=== PATIENT | male | born 1945 | race Caucasian/White ===

== ENCOUNTER 2018-02-24 14:54 | Inpatient (IN) | payer OTHER ==
[~2018-02-24] VITALS: Ht 172.7 cm; Wt 81.3 kg
[~2018-02-24 14:54] MED LIST: ACET325 PO; AMLO5 PO; Advil200 M1 PO; Aspirin EC81 MG PO; CALCAVITD PO; Colace100 MG PO; DUTA.5 PO; ELIQUIS5 MG PO; FOLI1 PO; Hair, Skin & N1 EACH PO; LISI10; LISI20 PO; LUTEIN40 MG PO; LUTEIN6 MG PO; METO50 PO; METO50ER PO; MULVITMIND PO; NICO21TP TOP; NITR.4SL SL; OMEP10ER; OMEP20ER PO; OMEPRAZOLE MAGN20 MG PO; ONDA4ODT MM; OXYC5 PO; PIRO10; Pacerone400 MG PO; SODCHL1 PO; SPIR25 PO; TAMS.4ER PO; TORSE20 PO; TRIHYD253A; TURMERIC500 M1 PO; VITAMIN D3 1,01 EACH PO; ZESTRIL40 MG PO
[2018-02-24 15:46] LABS: BASOPHILS PERCENT AUTO 0 % (0-2); EOSINOPHILS ABSOLUTE AUTO 0.06 K/mm3 (0.00-0.68); EOSINOPHILS PERCENT AUTO 0 % (0-6); Hematocrit 26.2 % (37.0-53.0); Hemoglobin 8.8 g/dL (13.5-17.5); IMMATURE GRAN ABSOLUTE AUTO 0.43 K/mm3 (0.00-0.10); IMMATURE GRAN PERCENT AUTO 2 % (0-1); LYMPHOCYTES ABSOLUTE AUTO 1.15 K/mm3 (0.84-5.20); LYMPHOCYTES PERCENT AUTO 4 % (21-46); MONOCYTES ABSOLUTE AUTO 0.93 K/mm3 (0.16-1.47); MONOCYTES PERCENT AUTO 4 % (4-13); Mean Corpuscular HGB 33.7 pg (26.0-34.0); Mean Corpuscular HGB Conc 33.6 g/dL (31.5-36.5); Mean Corpuscular Volume 100 fL (80-100); NEUTROPHILS ABSOLUTE AUTO 23.96 K/mm3 (1.96-9.15); NEUTROPHILS PERCENT AUTO 90 % (41-73); Platelet Count 68 K/mm3 (150-400); RDW Coefficient Variation 17.8 % (11.7-14.2); RDW Standard Deviation 65.4 fL (35.1-46.3); Red Blood Cell Count 2.61 M/mm3 (4.30-5.90); White Blood Cell Count 26.63 K/mm3 (4.00-11.30)
[2018-02-24 16:18] LABS: Albumin, Blood 1.7 g/dL (3.4-5.0); Albumin/Globulin Ratio 0.4 (0.8-1.8); Bilirubin, Total 6.1 mg/dL (0.1-1.0); Bun/Creatinine Ratio 28.8 (12.0-20.0); Creatinine, Blood 1.7 mg/dL (0.60-1.20); Potassium, Blood 6.2 mmol/L (3.5-5.5); Total Protein, Blood 5.7 g/dL (6.4-8.2)
[2018-02-24] MEDS ORDERED: K-Dur 20 meq T20 MEQ PO (16:38)
[2018-02-24] MEDS ORDERED: TRAM50 PO (16:39)
[2018-02-24 17:49] LABS: PCO2 Arterial 32.2 mmHg (35-45); PO2 Arterial 97.2 mmHg (80-100); pH Blood Arterial 7.38 (7.35-7.45)
[2018-02-24 19:42] LABS: Source, Urine Clean Catch
[2018-02-24 19:51] LABS: Blood, Urine 5+ (Neg); Glucose Qualitative, Urine Neg (Neg); Ketones, Urine Neg (Neg); Leukocyte Esterase, Urine 3+ (Neg); Nitrite, Urine Neg (Neg); Protein, Urine 2+ (Neg); Urobilinogen, Urine 2+ (Normal)
[2018-02-24 19:55] LABS: International Normalized Ratio 1.26; Prothrombin Time Results 12.8 Sec (9.7-11.5)
[2018-02-24 20:03] LABS: Bilirubin, Urine 1+ (Neg)
[2018-02-24 20:05] LABS: Appearance, Urine Turbid (Clear); Color, Urine Yellow (P-Yellow)
[2018-02-24 20:06] LABS: White Blood Cells, Urine TNTC /hpf (0-5)
[2018-02-24 20:07] LABS: Red Blood Cells, Urine 0-2 /hpf (0-2)
[2018-02-24 20:08] LABS: Bacteria Many /hpf; Squamous Epithelial Cells Not Seen /hpf (Few)
[2018-02-24 20:54] LABS: Influenza A Negative (NEGATIVE); Influenza B Negative (NEGATIVE)
--- NOTE | 2018-02-25 00:25 | NUR ---
PT ARRIVAL. PT ARRIVED ON THE UNIT APROX 2029. PT IS SLEEPY BUT RESPONDS TO VERBAL STIMULI. PT IS ABLE TO ANSWER SOME QUESTIONS APPROPRIATELY, HOWEVER IS CONFUSED MOST OF THE TIME. PT IS ADMITTED DUE TO HIGH K+. TELE WAS PLACED, SR IN THE 90'S PER PAPERHANGER CONTRACTOR, BP 96/62, PT HAS BEEN HYPOTENSIVE PER REPORT FROM ER NURSE. PT HAS HAD 2 VALVES REPLACED IN 2017. PT HAS 4+ PITTING EDEMA TO THE BLE AND GENERALIZED/DEPENDENT EDEMA TO THE REST OF HIS BODY. L/S CLEAR BUT DIM IN THE BASES. BT PRESENT BUT HYPOACTIVE, ABD IS SOFT AND NONTENDER TO PALP. PT IS CONT/INCONT OF URINE WITH A UTI. BLADDER SCAN SHOWED 243 MLS POST VOID. BED ALARM IN ON, CALL LIGHT IN REACH, BED IS LOCKED AND LOW, WILL CONTINUE TO MONITOR.
[2018-02-25 03:39] LABS: Source, Urine Catheter
[2018-02-25 03:44] LABS: Blood, Urine 5+ (Neg); Glucose Qualitative, Urine Neg (Neg); Ketones, Urine Neg (Neg); Leukocyte Esterase, Urine 3+ (Neg); Nitrite, Urine Pos (Neg); Protein, Urine 2+ (Neg); Urobilinogen, Urine 1+ (Normal)
[2018-02-25 03:47] LABS: Appearance, Urine Cloudy (Clear); Bilirubin, Urine 1+ (Neg); Color, Urine Yellow (P-Yellow)
[2018-02-25 03:51] LABS: Red Blood Cells, Urine 0-2 /hpf (0-2); White Blood Cells, Urine TNTC /hpf (0-5)
[2018-02-25 03:52] LABS: Bacteria Many /hpf; Squamous Epithelial Cells Not Seen /hpf (Few); WBC Cast 0-2 /lpf (0)
[2018-02-25 04:13] LABS: Hematocrit 24.6 % (37.0-53.0); Hemoglobin 8.3 g/dL (13.5-17.5); Mean Corpuscular HGB Conc 33.7 g/dL (31.5-36.5); Mean Corpuscular Volume 101 fL (80-100); Mean Platelet Volume 12.7 fL (9.1-12.4); RDW Coefficient Variation 17.9 % (11.7-14.2); Red Blood Cell Count 2.44 M/mm3 (4.30-5.90); White Blood Cell Count 28.42 K/mm3 (4.00-11.30)
[2018-02-25 04:15] LABS: Platelet Count 50 K/mm3 (150-400)
[2018-02-25 04:33] LABS: Magnesium, Blood 1.9 mg/dL (1.6-2.4)
[2018-02-25 04:36] LABS: Alanine Aminotransfer (ALT/SGP 56 U/L (12-78); Albumin, Blood 2.5 g/dL (3.4-5.0); Albumin/Globulin Ratio 0.7 (0.8-1.8); Alk Phos 296 U/L (50-136); Anion Gap 9 mmol/L (6-16); Aspartate Aminotrans (AST/SGOT 108 U/L (12-37); Bilirubin, Total 6.8 mg/dL (0.1-1.0); Blood Urea Nitrogen 54 mg/dL (8-24); Bun/Creatinine Ratio 28.1 (12.0-20.0); CO2, Blood 20 mmol/L (21-32); Calcium, Blood 7.9 mg/dL (8.5-10.1); Chloride, Blood 97 mmol/L (98-108); Creatinine, Blood 1.92 mg/dL (0.60-1.20); Globulin, Blood 3.5 g/dL (2.2-4.0); Glomerular Filtration Rate 37 (60-); Glucose, Blood 117 mg/dL (70-99); Phosphorus, Blood 4.6 mg/dL (2.5-4.9); Potassium, Blood 6.9 mmol/L (3.5-5.5); Sodium, Blood 126 mmol/L (136-145)
[2018-02-25 05:53] LABS: Bun/Creatinine Ratio 26.6 (12.0-20.0); Calcium, Blood 7.9 mg/dL (8.5-10.1); Creatinine, Blood 1.99 mg/dL (0.60-1.20); Potassium, Blood 6.4 mmol/L (3.5-5.5)
--- NOTE | 2018-02-25 06:35 | NUR ---
SHIFT SUMMARY. DURING THIS SHIFT PT'S K+ INCREASED TO 6.9, PROVIDER WAS CALLED AND ORDERS OBTAINED AND PT WAS TREATED PER EMAR. NO EKG CHANGES NOTED ON TELE. PT HAS CALLED OUT TO USE THE URINAL APROX 2-3 TIMES AN HOUR THIS SHIFT, PT ONLY VOIDS 15-100 MLS AT A TIME. PT WAS STRAIGHT CATHED PER PROVIDER'S ORDRES FOR URINE CULTURES 200MLS OBTAINED. PT'S CONFUSION CONTINUES. PT'S BP HAS IMPROVED FROM ADMIT. PT'S VS HAVE BEEN STABLE. PICTURES OF ULCERATIONS ON THE PT'S FORSKIN AND RECTAL AREA WERE OBTAINED AND ARE IN THE CHART. CALL LIGHT IN REACH, BED IS LOCKED AND LOW, WILL CONTINUE TO MONITOR UNTIL REPORT CAN BE GIVEN TO ONCOMING RN.
--- NOTE | 2018-02-25 08:15 | NUR ---
DR. BERNAL AT BEDSIDE FOR EVALUATION, ADVISED OF ULCER ON PENIS AND RECTAL AREA, SHE ASSESSED PT AND REVIEWED PICTURES IN THE CHART. NO NEW ORDERS AT THIS TIME.
--- NOTE | 2018-02-25 08:17 | NUR ---
CRITICAL POTASSIUM CALLED DR. RAMIREZ WITH POTASSIUM LEVEL OF 6.1, NEW ORDER TO INCREASE BUMEX TO 4MG IV FOR 0900 DOSE, DRAW POTASSIUM LEVEL AT 1100, AND CALL WITH RESULTS. NEW ORDERS PLACED.
[2018-02-25 09:41] LABS: Bun/Creatinine Ratio 27.9 (12.0-20.0); Calcium, Blood 8.2 mg/dL (8.5-10.1); Creatinine, Blood 1.97 mg/dL (0.60-1.20)
--- NOTE | 2018-02-25 12:35 | NUR ---
CALLED DR. RAMIREZ WITH POTASSIUM RESULTS OF 5.8. NO NEW ORDERS.
--- NOTE | 2018-02-25 16:49 | NUR ---
PARTIAL ECHOCARDIOGRAM COMPLETED
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
--- NOTE | 2018-02-25 20:55 | NUR ---
PM NOTE. ASSUMED CARE OF PT APROX 1900. PT RESPONDS TO VERBAL STIMULI AND IS AWAKE AT TIMES BUT IS VERY SLEEPY AND WILL FALL ASLEEP DURING TASKS LIKE USING THE URINAL. TELE INTACT, ST AT 103, BP 135/99, 4+ PITTING EDEMA NOTED TO BLE AND GENERALIZED NON-PITTING NOTED EVERYWHERE ELSE. L/S CLEAR BUT DIM IN THE BASES. BT PRESENT AND HYPOACTIVE, ABD IS SOFT AND NONTENDER TO PALP. PT IS CALLING OUT FOR THE URINAL FREQUENTLY [id number] MINS, PT IS ONLY ABLE TO VOID SMALL AMOUNTS OF URINE FROM 20MLS-100MLS. PT HAS HISTORY OF BPH AND RETENTION, BLADDER SCAN WAS DONE AND >999 MLS WAS FOUND, PT'S PELVIC AREA IS HARD AND SLIGHTLY DISTENDED TO PALP, PT STATES PAIN WHEN AREA IS PALPATED. PT IS BECOMING VERY ANXIOUS ABOUT NOT BEING ABLE TO VOID AN AMOUNT THAT BRINGS HIM RELIEF. SPOKE TO CHARGE NURSE, NOHEMI JORGENSEN PLACED DUE TO UROLOGICAL EMERGENCY.
[2018-02-26 05:47] LABS: Hematocrit 26.4 % (37.0-53.0); Hemoglobin 9.1 g/dL (13.5-17.5)
[2018-02-26 06:05] LABS: Albumin, Blood 2.4 g/dL (3.4-5.0); Anion Gap 12 mmol/L (6-16); Blood Urea Nitrogen 62 mg/dL (8-24); Bun/Creatinine Ratio 31.8 (12.0-20.0); CO2, Blood 23 mmol/L (21-32); Calcium, Blood 8.2 mg/dL (8.5-10.1); Chloride, Blood 94 mmol/L (98-108); Creatinine, Blood 1.95 mg/dL (0.60-1.20); Glomerular Filtration Rate 36 (60-); Glucose, Blood 153 mg/dL (70-99); Magnesium, Blood 2.1 mg/dL (1.6-2.4); Phosphorus, Blood 6.5 mg/dL (2.5-4.9); Potassium, Blood 5.5 mmol/L (3.5-5.5); Sodium, Blood 129 mmol/L (136-145)
--- NOTE | 2018-02-26 07:48 | NUR ---
SHIFT SUMMARY. NO ACUTE CHANGES NOTED THIS SHIFT, PT'S VS HAVE BEEN STABLE T/O SHIFT. PT DENIES ANY CHEST PAIN/PRESSURE, N/V OR SOB. PT WAS MEDICATED FOR PAIN PER EMAR. PT IS STILL CONFUSED AT TIMES, BED ALARM IS ON. PT REQURIED JORGENSEN PLACEMENT THIS SHIFT DUE TO URINARY RETENTION, BLADDER SCAN WAS DONE AND SHOWED >999 MLS. A COUDE JORGENSEN WAS PLACED WITH DIFFICULTY, JORGENSEN DRAINED 2425 MLS OF CLOUDY, DARK YELLOW, FOUL SMELLING URINE THIS SHIFT. CALL LIGHT IN REACH, BED IS LOCKED AND LOW, WILL CONTINUE TO MONITOR UNTIL REPORT IS GIVEN TO ONCOMING RN.
[2018-02-26 09:10] LABS: BASOPHILS ABSOLUTE AUTO 0.06 K/mm3 (0.00-0.23); BASOPHILS PERCENT AUTO 0 % (0-2); EOSINOPHILS ABSOLUTE AUTO 0.07 K/mm3 (0.00-0.68); EOSINOPHILS PERCENT AUTO 0 % (0-6); Hematocrit 26.5 % (37.0-53.0); Hemoglobin 9.3 g/dL (13.5-17.5); IMMATURE GRAN ABSOLUTE AUTO 0.17 K/mm3 (0.00-0.10); IMMATURE GRAN PERCENT AUTO 1 % (0-1); LYMPHOCYTES ABSOLUTE AUTO 1.54 K/mm3 (0.84-5.20); LYMPHOCYTES PERCENT AUTO 9 % (21-46); MONOCYTES ABSOLUTE AUTO 0.92 K/mm3 (0.16-1.47); MONOCYTES PERCENT AUTO 5 % (4-13); Mean Corpuscular HGB 33.3 pg (26.0-34.0); Mean Corpuscular HGB Conc 35.1 g/dL (31.5-36.5); Mean Platelet Volume 12.1 fL (9.1-12.4); NEUTROPHILS ABSOLUTE AUTO 14.65 K/mm3 (1.96-9.15); NEUTROPHILS PERCENT AUTO 84 % (41-73); Platelet Count 69 K/mm3 (150-400); RDW Coefficient Variation 17.1 % (11.7-14.2); Red Blood Cell Count 2.79 M/mm3 (4.30-5.90); White Blood Cell Count 17.41 K/mm3 (4.00-11.30)
[2018-02-26 09:15] LABS: HBSAG SCREEN Negative (Negative); HEP A AB, IGM Negative (Negative); HEP B CORE AB, IGM Negative (Negative); HEP C VIRUS AB 0.1 (0.0-0.9)
[2018-02-26 09:21] LABS: Mean Corpuscular Volume 95 fL (80-100)
--- NOTE | 2018-02-26 17:27 | NUR ---
DR. BERNAL CALLED [facility] AND [facility] TO TRY TO HAVE PATIENT TRANSFERRED PER PATIENT REQUEST. [facility] AND [facility] HAVE NO BEDS AVAILABLE. [facility] REFUSED TO ACCEPT THE PATIENT BECAUSE LEVEL OF CARE DOES NOT WARRANT TRANSFER.
--- NOTE | 2018-02-26 19:53 | NUR ---
SHIFT SUMMARY PT A&O X4. FAMILY AT BEDSIDE T/O DAY. PT NO C/O PAIN OR DISCOMFORT. LUNG SOUNDS CLEAR T/O, DIM IN BASES. SPO2 > 92% ON RA. MONITOR SHOWS NSR, HR 90'S. JORGENSEN CATH DRAINING DARK YELLOW URINE. SCATTERED BRUISING T/O EXT'S THAT PT STATES HAPPEN EASILY AND STATES "A NEW ONE POPS UP EVERY DAY". LUMP TO L UPPPER CHEST ACKNOWLEDGED BY . US DONE OF AREA DURING CHANGE OF SHIFT. FAMILY REQUESTING TRANSFER OF CARE TO ANOTHER HOSPITAL T/O DAY. WHEN ADDRESSING PT ABOUT FAMILY REQUEST PT STATES "I DON'T WANT TO UPSET MY FAMILY." PT HAS NOT EXPRESSED WISHES TO TRANSFER OR EXPRESSED COMPLAINTS OF CARE OF ANY KIND WHEN ASKED. MD BERNAL MADE AWARE OF PT'S FAMILY'S REQUEST AND SPOKE W/ FAMILY. FAMILY MADE AWARE OF THE HOSPITAL TRANSFER PROCESS. MYSELF, CHARGE NURSE, TELESALES MANAGER, NURSING INTERNATIONAL TRADE MANAGER, AND MD BERNAL ALL INVOLVED W/ FAMILY EDUCATION OF TRANSFER REQUEST W/ POTENTIAL DICHARGE TO [facility] TO OCCUR TOMORROW. FAMILY STATES "IT'S NOTHING THAT'S HAPPENED OR BEEN DONE BY ANY OF YOU GUYS HERE. IT'S PAST EXPERIENCES." TIME SPENT W/ PT AND FAMILY ADDRESSING CONCERNS W/ LITTLE CONFIRMATION TO REASON FOR TRANSFER REQUEST. REPORT GIVEN TO NOC SHIFT NURSE WHO HAS ASSUMED CARE OF PT.
[2018-02-27 04:24] LABS: Hematocrit 24.3 % (37.0-53.0); Hemoglobin 8.5 g/dL (13.5-17.5); Mean Corpuscular HGB 33.3 pg (26.0-34.0); Mean Corpuscular Volume 95 fL (80-100); Mean Platelet Volume 11.8 fL (9.1-12.4); Platelet Count 80 K/mm3 (150-400); RDW Coefficient Variation 17.2 % (11.7-14.2); RDW Standard Deviation 59.7 fL (35.1-46.3); Red Blood Cell Count 2.55 M/mm3 (4.30-5.90); White Blood Cell Count 15.56 K/mm3 (4.00-11.30)
[2018-02-27 04:46] LABS: Albumin, Blood 2.4 g/dL (3.4-5.0); Anion Gap 10 mmol/L (6-16); Blood Urea Nitrogen 67 mg/dL (8-24); Bun/Creatinine Ratio 35.3 (12.0-20.0); CO2, Blood 25 mmol/L (21-32); CPK Creatine Kinase 11 U/L (39-308); Calcium, Blood 7.9 mg/dL (8.5-10.1); Chloride, Blood 93 mmol/L (98-108); Glomerular Filtration Rate 37 (60-); Glucose, Blood 140 mg/dL (70-99); Magnesium, Blood 1.9 mg/dL (1.6-2.4); Phosphorus, Blood 5.7 mg/dL (2.5-4.9); Potassium, Blood 4.7 mmol/L (3.5-5.5); Sodium, Blood 128 mmol/L (136-145); Uric Acid, Blood 7.7 mg/dL (3.5-7.2)
[2018-02-27 04:49] LABS: BAND PERCENT MAN 9 % (0-8); BASOPHILS PERCENT MAN 0 % (0-2); EOSINOPHILS PERCENT MAN 0 % (0-6); LYMPHOCYTES ABSOLUTE MAN 1.86 K/mm3 (0.84-5.20); LYMPHOCYTES PERCENT MAN 12 % (21-46); MONOCYTES ABSOLUTE MAN 0.77 K/mm3 (0.16-1.47); MONOCYTES PERCENT MAN 5 % (4-13); NEUTROPHILS ABSOLUTE MAN 12.91 K/mm3 (1.96-9.15); SEG NEUTROPHILS PERCENT MAN 74 % (41-73); TOTAL CELLS COUNTED 100
--- NOTE | 2018-02-27 06:25 | NUR ---
SHIFT SUMMARY PT HAS BEEN ALERT AND ORIENTED X 2 T/O SHIFT. HE DID HAVE SOME PERIODS OF CONFUSION. PT SLEPT OFF AND ON DURING THE NIGHT, BUT HAD COMPLAINTS OF PAIN IN HIS BACK AND LEGS DURING THE NIGHT. HE WAS PROVIDED ORDERED PAIN MEDS WHICH HE STATED HELPED SOME. WHEN HE WAS REASSESSED, HE WAS SLEEPING SOUNDLY. PT HAS BEEN WITHDRAWN DURING THE SHIFT, BUT ANSWERED QUESTIONS APPROPRIATELY, JUST ANSWERED SLOWLY. HE WAS ALERT TO FAMILY, BUT HAD MOMENTS OF DISORIENTATION. PT WAS REORIENTED DURING THESE PERIODS. HE WAS ABLE TO APPROPRIATELY USE HIS CALL LIGHT AND IT WAS LEFT WITHIN EASY REACH. HE WAS ABLE TO SWALLOW MEDS WITHOUT ISSUE AND HE DENIED ANY UNMET NEEDS. PT WAS ABLE TO MAKE NEEDS KNOWN. HIS VITALS REMAINED STABLE AND NO ACUTE CHANGES WERE OBSERVED TO MENTATION OR LOC. HE HAS NOT BEEN UP DURING THE NIGHT. PT IS REPORTED TO BE A STAND AND PIVOT TRANSFER. HE HAS HIS BED IN THE LOWEST POSITION, CALL LIGHT IN REACH AND 2X SIDE RAILS IN PLACE. PT DID HAVE HIS ULTRASOUND ON THE NEW BUMP ON HIS UPPER CHEST WALL AT SHIFT CHANGE ON THE 4TH. PT FAMILY EDUCATED ABOUT THIS AND THE POTENTIAL NEED FOR CT. PT WILL CONTINUE TO BE MONITORED AND FAMILY WILL BE KEPT IN THE LOOP TO FURTHER NEEDS/DX. WILL CONTINUE TO OBSERVE PATIENT UNTIL HANDOFF TO DAYSHIFT RN.
--- NOTE | 2018-02-27 16:13 | NUR ---
DISCHARGE REPORT CALLED TO LISA @ [place] WHO WILL BE RECIEVING THE PT. PT DISCHARGED @ APPROX 1600, BEING TRANSPORTED BY [facility] TO [place]. VSS. JORGENSEN PATENT AND DRAINING. NO C/O FROM PT. FAMILY NOTIFIED OF PT'S NEW ROOM ASSIGNMENT AT [place] AND PT'S DISCHARGE TIME.
== END 2018-02-27 16:10 | disposition short-term general hospital (02) | DRG 871 ==
LOC: ER 14:54 → PCU 19:15
PROVIDERS: Internal Medicine; Internal Medicine Nephrology; Nurse Practitioner Acute Care; Physician Assistant; ADMIT Internal Medicine
DX: A41.9 Sepsis, unspecified organism (principal); I21.A1 Myocardial infarction type 2; N17.0 Acute kidney failure with tubular necrosis; N39.0 Urinary tract infection, site not specified; I50.22 Chronic systolic (congestive) heart failure; F11.20 Opioid dependence, uncomplicated; E87.2 Acidosis; E87.1 Hypo-osmolality and hyponatremia; I13.0 Hypertensive heart and chronic kidney disease with heart failure and stage 1 through stage 4 chronic kidney disease, or unspecified chronic kidney disease; E87.5 Hyperkalemia; R65.20 Severe sepsis without septic shock; Z95.4 Presence of other heart-valve replacement; K64.9 Unspecified hemorrhoids; K21.9 Gastro-esophageal reflux disease without esophagitis; M19.90 Unspecified osteoarthritis, unspecified site; Z96.643 Presence of artificial hip joint, bilateral; Z79.82 Long term (current) use of aspirin; K70.9 Alcoholic liver disease, unspecified; D63.8 Anemia in other chronic diseases classified elsewhere; I25.10 Atherosclerotic heart disease of native coronary artery without angina pectoris; E87.70 Fluid overload, unspecified; K70.0 Alcoholic fatty liver; I48.2 Chronic atrial fibrillation; I08.3 Combined rheumatic disorders of mitral, aortic and tricuspid valves; E83.39 Other disorders of phosphorus metabolism; E88.09 Other disorders of plasma-protein metabolism, not elsewhere classified; N18.3 Chronic kidney disease, stage 3 (moderate)
CPT/HCPCS: 36415; 36600; 51703; 71046; 76604; 76705; 76770; 80048; 80053; 80069; 80074; 81001; 82140; 82533; 82550; 82607; 82746; 82803; 83605; 83690; 83735; 83880; 84100; 84132; 84145; 84300; 84443; 84550; 85014; 85018; 85025; 85027; 85610; 87040; 87077; 87086; 87186; 87804; 93005; 93010; 93308; 94644; 96365; 96366; 96368; 96375; 97116; 97162; 97166; 97530; 97535; 99285-25; J0610; J0692; J0696; J0881; J1815; J1956; J7030; P9041; P9046

== ENCOUNTER 2018-04-05 09:27 | Inpatient (IN) | payer OTHER ==
[~2018-04-05] VITALS: Ht 170.2 cm; Wt 72.6 kg
[~2018-04-05 09:27] MED LIST changes: +K-Dur 20 meq T20 MEQ PO; +TRAM50 PO
[2018-04-05] MEDS ORDERED: IBUP400 PO (09:43)
[2018-04-05] MEDS ORDERED: DIALYVITE50000 UNIT PO (09:44)
[2018-04-05] MEDS ORDERED: PERIDEX15 ML PO (09:44)
[2018-04-05] MEDS ORDERED: GAVILAX17 GM PO (09:44)
[2018-04-05] MEDS ORDERED: LACT10SY PO (09:45)
[2018-04-05] MEDS ORDERED: FURO20 PO (09:45)
[2018-04-05] MEDS ORDERED: LIDOCAINE PAIN1 EACH TOP (09:46)
[2018-04-05] MEDS ORDERED: SPIR50 PO (09:46)
[2018-04-05] MEDS ORDERED: LEVFLO500 PO (09:46)
[2018-04-05] MEDS ORDERED: AMLO5 PO (09:47)
[2018-04-05 11:22] LABS: BASOPHILS ABSOLUTE AUTO 0.02 K/mm3 (0.00-0.23); BASOPHILS PERCENT AUTO 0 % (0-2); EOSINOPHILS ABSOLUTE AUTO 0.19 K/mm3 (0.00-0.68); EOSINOPHILS PERCENT AUTO 2 % (0-6); Hematocrit 19.2 % (37.0-53.0); Hemoglobin 6.3 g/dL (13.5-17.5); IMMATURE GRAN ABSOLUTE AUTO 0.05 K/mm3 (0.00-0.10); IMMATURE GRAN PERCENT AUTO 1 % (0-1); LYMPHOCYTES ABSOLUTE AUTO 1.77 K/mm3 (0.84-5.20); LYMPHOCYTES PERCENT AUTO 17 % (21-46); MONOCYTES PERCENT AUTO 13 % (4-13); Mean Corpuscular HGB 31.5 pg (26.0-34.0); Mean Corpuscular HGB Conc 32.8 g/dL (31.5-36.5); Mean Corpuscular Volume 96 fL (80-100); Mean Platelet Volume 8.5 fL (9.1-12.4); NEUTROPHILS ABSOLUTE AUTO 7.04 K/mm3 (1.96-9.15); NEUTROPHILS PERCENT AUTO 67 % (41-73); Platelet Count 159 K/mm3 (150-400); RDW Coefficient Variation 15.5 % (11.7-14.2); RDW Standard Deviation 54.3 fL (35.1-46.3); White Blood Cell Count 10.47 K/mm3 (4.00-11.30)
[2018-04-05 11:42] LABS: Albumin, Blood 2.5 g/dL (3.4-5.0); Albumin/Globulin Ratio 0.6 (0.8-1.8); Bilirubin, Total 0.8 mg/dL (0.1-1.0); Bun/Creatinine Ratio 17.8 (12.0-20.0); Calcium, Blood 8.8 mg/dL (8.5-10.1); Creatinine, Blood 1.74 mg/dL (0.60-1.20); Globulin, Blood 4.3 g/dL (2.2-4.0); International Normalized Ratio 1.33; Potassium, Blood 4.1 mmol/L (3.5-5.5); Prothrombin Time Results 13.7 Sec (9.7-11.5); Total Protein, Blood 6.8 g/dL (6.4-8.2)
[2018-04-05 12:13] LABS: Source, Urine Clean Catch
[2018-04-05 12:22] LABS: Bilirubin, Urine Neg (Neg); Blood, Urine 1+ (Neg); Glucose Qualitative, Urine Neg (Neg); Ketones, Urine Neg (Neg); Leukocyte Esterase, Urine 2+ (Neg); Nitrite, Urine Neg (Neg); Protein, Urine Neg (Neg); Specific Gravity, Urine 1.005 (1.003-1.022); Urobilinogen, Urine NORM (Normal)
[2018-04-05 13:01] LABS: Appearance, Urine Clear (Clear); Color, Urine Yellow (P-Yellow)
[2018-04-05 13:03] LABS: Red Blood Cells, Urine 0-2 /hpf (0-2); Squamous Epithelial Cells Rare /hpf (Few)
[2018-04-05 13:04] LABS: Bacteria Rare /hpf
[2018-04-05 16:54] LABS: Hematocrit 23.8 % (37.0-53.0)
--- NOTE | 2018-04-05 18:21 | NUR ---
PATIENT GAVE THIS STUDENT NURSE PERMISSION TO VIEW CHART AND ASSIST WITH CARE
--- NOTE | 2018-04-05 18:57 | NUR ---
recvd report from previous shift rn shannon, pt sitting up in bed, a/o x 4, pleasant. vss, bed in lowest position, call light within reach, bed rails up x 2
--- NOTE | 2018-04-05 19:10 | NUR ---
DR COLEY HERE TO SEE PT, DISCUSSED PT'S STATUS INCLUDING PT REPORTING THAT HE HAS NOT HAD A BM IN A WEEK. REPORTS PLANNING ON UPPER TOMMORROW AND DOES NOT WISH PT TO HAVE ANY ADDITIONAL BOWEL CARE AT THIS TIME. HS RN HERE TALKING WITH DR COLEY WELL. DR COLEY REPORTS PT MAY HAVE C.L. AND BE NPO AFTER MIDNIGHT. PT VOIDING. PT 2ND UNIT OF PRBC'S STARTED. DISCUSSED S/SX OF REACTION. PICTURE BEEN TAKE OF HEEL ON L FOOT. R FOOT DID HAVE REDNESS BUT DOES NOT APPEAR TO HAVE ANY AFTER FLOATING HEELS WHILE IN BED. PT WAS ASSISTED EARLIER TO CHAIR AND THEN BACK TO BED AFTER SITTING UP FOR SHORT WHILE. HS RN BEEN GIVEN BEDSIDE REPORT AND ASSISTED WITH VERIFYING PRBC'S AND PLACING PAS TO BLE. CALL LIGHT IN REACH. TELE IN PLACE.
[2018-04-06 05:42] LABS: Hematocrit 26.7 % (37.0-53.0); Hemoglobin 9.1 g/dL (13.5-17.5); Mean Corpuscular HGB 31.9 pg (26.0-34.0); Mean Corpuscular HGB Conc 34.1 g/dL (31.5-36.5); Mean Corpuscular Volume 94 fL (80-100); Mean Platelet Volume 8.6 fL (9.1-12.4); Platelet Count 128 K/mm3 (150-400); RDW Coefficient Variation 15.9 % (11.7-14.2); RDW Standard Deviation 54.8 fL (35.1-46.3); Red Blood Cell Count 2.85 M/mm3 (4.30-5.90); White Blood Cell Count 7.51 K/mm3 (4.00-11.30)
[2018-04-06 05:59] LABS: Calcium, Blood 7.8 mg/dL (8.5-10.1); Creatinine, Blood 1.39 mg/dL (0.60-1.20); Potassium, Blood 4.1 mmol/L (3.5-5.5)
--- NOTE | 2018-04-06 07:44 | NUR ---
20G TO PT RT HAND PATENT AND INFUSING LR
--- NOTE | 2018-04-06 07:45 | NUR ---
PT IS PLEASANT AND COOPERATIVE. DR GALVAN IS PRESENT READING PT CHART. PT STATES THAT HIS IS IN WAITING ROOM. PT REQUESTING SWAB FOR MOUTH.
--- NOTE | 2018-04-06 07:52 | NUR ---
DR OTERO SAW PT NO NEW ORDERS GIVEN TO RN. PT RESTING QUIETLY UNDER WARM BLANKETS
--- NOTE | 2018-04-06 08:02 | NUR ---
DR COLEY TO SEE PT. NO NEW ORDERS GIVEN. PT BACK TO PROCEDURE ROOM
--- NOTE | 2018-04-06 08:09 | NUR ---
PT WAS BROUGHT BACK TO BEDSIDE. SO AFTER PROCEDURE DR COLEY CAN SPEAK TO HER.
--- NOTE | 2018-04-06 08:11 | NUR ---
04/06/18 0811 Lydia Anders History, Chart, Medications and Allergies reviewed before start of procedure. MAC CASE WITH DR. OTERO. SEE ANETHESIA RECORD FOR CARE.
--- NOTE | 2018-04-06 10:45 | NUR ---
DR GOMEZ HERE RECENTLY TO SEE PT.
--- NOTE | 2018-04-06 12:34 | NUR ---
Initial palliative care consult: Eric is a 72 year old with a history of UTI, chest wall abcess, anemia, chronic a-fib, CHF, CKD, valve disorder, and ETOH. He was recently admitted to [facility] in early February 2018 and was transferred to [facility]. This February admit was for sepsis and a spinal infection. He was discharged to [facility] for rehab and has been there for the past 3-4 weeks. He has had a 50 pound weight loss recently. He had an EGD this morning which showed gastritis. He is scheduled to begin [facility] for a colonoscopy prep at 1600 this afternoon. Pt was calling out when this senior writer entered his room. He was requesting a urinal. Urinal obtained and pt unable to void laying down so he requested assist to the bathroom. Pt attempted to get OOB several times, however he c/o back spams and back pain and he was unable to get OOB. Assisted pt to side of the bed and he was able to lay sideways in the bed and void 275 ml of micheal colored urine. He was unable to sit at the EOB. Assisted pt back in bed and repositioned him. He reports that his back pain increases when he tries to move. He is guarding and becomes anxious when he moves. Once he is laying still, he drifts off to sleep when undisturbed. He does have tramadol and a lidoderm patch available to use prn pain. He has not had any doses of either in the past 12 hours. MD chart notes reviewed and pt has been treated recently for a spinal infection. Pt requesting a sip of water which his nurse brought in for him. He do has some muscle twitching which is more apparent when he is sleeping. Per chart notes, this has been an ongoing problem recently. Phone call placed to [facility] and spoke with Kristen. Kristen reports pt has a signed POLST on file at [facility] that reads DNR, comfort measures and no TF. Kristen faxed a copy of Eric's POLST to Palliative care department. Talked with pt about his POLST. He states that he did sign a DNR POLST, however he states "I need to talk more about resusitation with my ." He requests to receive more information about resusitation and POLST form when his is present. Nursing reports his plans to return tomorrow. Updated nursing on PC visit. Plan to manage pt's pain with prn pain medications and prep for colonoscopy. PC to meet with pt and re: POLST form and wishes for future care planning after colonoscopy.
--- NOTE | 2018-04-06 17:58 | NUR ---
SHIFT SUMMARY PT HAVING GO-LYTELY. PT BEEN RESTING MOST OF DAY AFTER HAVING PROCEDURE THIS AM. PT HAS HAD NO BM'S YET. PT VOIDING. BED ALARM IN PLACE. PT USING CALL LIGHT APPR.
--- NOTE | 2018-04-07 05:57 | NUR ---
SHIFT SUMMARY: PT COMPLETED GO-LYTELY AT APPROX 0300 THIS AM. USING BEDPAN MOST OF SHIFT. STOOL IS OF LIQUID CONSTISTANCY BEGINNING TO CHANGE COLOR FROM BROWN TO YELLOW. PT HAS BEEN NPO T/O SHIFT FOR PLANNED COLONOSCOPY TODAY. OOB TO BSC WITH ONE SBA. PT APPEARS VERY WEAK UPON STANDING. BED ALARM ON FOR SAFETY.
--- NOTE | 2018-04-07 07:05 | NUR ---
History, Chart, Medications and Allergies reviewed before start of procedure. Pre-Op teaching done. Pt verbalizes understanding.
--- NOTE | 2018-04-07 07:38 | NUR ---
04/07/18 0738 Chuckie Espinal 3-LEAD EKG REVIEWED WITH PHYSICIAN PRIOR TO START OF PROCEDURE.PATIENT CONFIRMS NPO STATUS AND AGREES WITH SCHEDULED PROCEDURE.History, Chart, Medications and Allergies reviewed before start of procedure. MONITOR INTACT WITH CONTINUOUS PULSE OXIMETRY AND INTERMITTENT BP. O2 VIA N/C INTACT THROUGHOUT SEDATION/PROCEDURE.
--- NOTE | 2018-04-07 08:48 | NUR ---
post colonoscopy returned to room post colonoscopy, patient denies pain or nause. patients at bedside
[2018-04-07 09:17] LABS: Hematocrit 25.9 % (37.0-53.0); Hemoglobin 8.5 g/dL (13.5-17.5)
--- NOTE | 2018-04-07 15:04 | NUR ---
PATIENT SLEEPS WHEN UNDISTURBED, DOES NOT REMEMBER HIS BEING IN TO VISIT THIS MORNING.
--- NOTE | 2018-04-07 18:00 | NUR ---
symmary sleeps soundlyunless awakened. patient denies vomiting or abd pain. tolerating food and fluid. patient encouraged to get oob but has declined due to back pain. pt repositions self in bed
--- NOTE | 2018-04-07 18:03 | NUR ---
PATIENT NOTED WITH JERKING MOVEMENTS OF ARMS AND LEGS AT REST AND WHEN SLEEPING. PER PATIENTS PATIENT HAS HAD THESE MOVEMENTS IN THE PAST. PATIENTS DISCUSSED THESE MOVEMENTS WITH HOSPITALIST ON ROUNDS THIS MORNING
--- NOTE | 2018-04-08 00:55 | NUR ---
PATIENT WANTS BED CARDOSO AND LIKES TO SIT ON IT FOR A LONG TIME I TOLD PATIENT IT IS BAD TO SIT ON IT FOR A LONG TIME BUT DIDNT DO ANY GOOD PATIENT LET ME EMPTY IT AND WANTED IT BACK GONZALEZ AWAY
--- NOTE | 2018-04-08 02:18 | NUR ---
PT CONTINUED PASSING GREEN COLORED LIQUID PER RECTUM WITH NO EVIDENCE OF BLEEDING.VOIDING PER URINAL.REFUSED OOB FOR REPORTED C/O CHRONIC BACK PAIN. I MEDICATED PT WITH ULTRAM WHICH PT REPORTED ADEQUATE PAIN CONTROL S/P MED. I PLACED CALL OUT TO DR BOSTON FOR CONTINUED LIQ STOOL WHICH PT REPORTS NOT STARTING PRIOR TO PREP FOR SCOPE.WAITING RETURN CALL.
[2018-04-08 04:25] LABS: Hematocrit 27.6 % (37.0-53.0); Hemoglobin 9.1 g/dL (13.5-17.5); Mean Corpuscular HGB 32.2 pg (26.0-34.0); Mean Platelet Volume 8.4 fL (9.1-12.4); Platelet Count 116 K/mm3 (150-400); RDW Coefficient Variation 16.2 % (11.7-14.2); RDW Standard Deviation 57.9 fL (35.1-46.3); Red Blood Cell Count 2.83 M/mm3 (4.30-5.90); White Blood Cell Count 5.83 K/mm3 (4.00-11.30)
[2018-04-08 04:28] LABS: Mean Corpuscular Volume 98 fL (80-100)
[2018-04-08 04:43] LABS: Magnesium, Blood 1.3 mg/dL (1.6-2.4)
[2018-04-08 04:44] LABS: Albumin, Blood 2.3 g/dL (3.4-5.0); Anion Gap 9 mmol/L (6-16); Blood Urea Nitrogen 10 mg/dL (8-24); CO2, Blood 22 mmol/L (21-32); Calcium, Blood 8.3 mg/dL (8.5-10.1); Chloride, Blood 103 mmol/L (98-108); Creatinine, Blood 0.84 mg/dL (0.60-1.20); Glomerular Filtration Rate >60 (60-); Glucose, Blood 118 mg/dL (70-99); Phosphorus, Blood 2.3 mg/dL (2.5-4.9); Potassium, Blood 3.5 mmol/L (3.5-5.5); Sodium, Blood 134 mmol/L (136-145)
--- NOTE | 2018-04-08 06:06 | NUR ---
SUMMARY PT SLEEPING BETWEEN PAIN MEDS. REPORTS PAIN ADEQUATELY CONTROLLED BUT HE ALSO STATES WILL HAVE TO SEE WHEN HE GETSS OOB DURING DAY. ENC OOB. BMS SLOWED. NS INFUSING. MEPILEX INTACT PER MY PLACEMENT TO SACRUM AND HEEL MEPILEX ALSO PLACED.
--- NOTE | 2018-04-08 08:07 | NUR ---
Consent for care Obtained consent from pt to assist in care with primary RN for DOS 04/08/18
--- NOTE | 2018-04-08 10:16 | NUR ---
CO DIRECTOR RECENTLY IN ROOM TALKING WITH PT. PT BEEN SLEEPING THIS AM.
--- NOTE | 2018-04-08 16:46 | NUR ---
Pt is alert, oriented, pleasant. He appears to be resting, wakens easily to voice cue. Reports 4/10 pain, would like to be 0/10. Pain medication is effective when he takes it. Reviewed POLST. Pt has DNR with Comfort Measures only POLST. He reports that these are still his wishes. Will remain available.
--- NOTE | 2018-04-08 16:56 | NUR ---
Call placed to [facility] to ask for a boat cleaner copy of POLST form. This is sent, but still poor copy. Scanned to medical records for review and placement in [facility].
--- NOTE | 2018-04-08 17:24 | NUR ---
SHIFT SUMMARY PT EATING AND DRINKING. VOIDING USING URINAL. PT UP TO CHAIR WITH PHYSICAL THERAPY. PT BEEN ASSISTED WITH ADL'S PRN. PT CALL LIGHT IN REACH. PT BEEN ASSISTED WITH ADL'S PRN. PT FAMILY IN/OUT OF ROOM TODAY.
--- NOTE | 2018-04-09 07:38 | NUR ---
SUMMARY NO ACUTE CHANGES DURING NIGHT. PT REPORTS PAIN MEDS EFFECTIVE.
--- NOTE | 2018-04-09 15:35 | NUR ---
DISCHARGE SUMMARY: PT IS EATING, DRINKING AND VOIDING WELL. HE IS ABLE TO USE URINAL AT BEDSIDE. HE WAS ABLE TO AMBULATE TO RESTROOM WITH 1 ASSIST FWW & GB. HE WORKED WITH PT/OT AND T[employer]ERATED [employer]. UP TO CHAIR FOR BREAKFAST AND LUNCH. REPORTS PAIN TOLERABLE WITH 2 PO ULTRAM AND LIDOCAINE PATCH. REPORT CALLED TO NARCISA MANNING AT [facility] ([phone]) @ [phone]. KERRI IS AWARE OF LIDOCAINE PATCH NEEDING TO BE REMOVED AT 2100 TONIGHT. D/C PACKET W/HARDSCRIPT SENT WITH [facility]. PT TRANSFERED VIA W/C. BELONGINGS SENT WITH PT. PT'S JENAE NOTIFIED VIA PHONE OF PT'S TRANSFER TO [facility].
== END 2018-04-09 15:20 | DRG 380 ==
LOC: ER 09:27 → SURS 13:07 → MEDS 13:07 → SURS 15:54 → ENPENDDIS 04-09 10:55 → SURS 04-09 15:20
PROVIDERS: Emergency Medicine; Internal Medicine Gastroenterology; ADMIT Internal Medicine
PROC: 0DBK8ZX Excision of Ascending Colon, Via Natural or Artificial Opening Endoscopic, Diagnostic (ICD-10-PCS; principal; 2018-04-05)
PROC: 0DBM8ZX Excision of Descending Colon, Via Natural or Artificial Opening Endoscopic, Diagnostic (ICD-10-PCS; 2018-04-05)
PROC: 30233N1 Transfusion of Nonautologous Red Blood Cells into Peripheral Vein, Percutaneous Approach (ICD-10-PCS; 2018-04-05)
PROC: 0DJ08ZZ Inspection of Upper Intestinal Tract, Via Natural or Artificial Opening Endoscopic (ICD-10-PCS; 2018-04-06)
DX: K22.10 Ulcer of esophagus without bleeding (principal); G92 Toxic encephalopathy; G06.1 Intraspinal abscess and granuloma; D62 Acute posthemorrhagic anemia; E87.1 Hypo-osmolality and hyponatremia; I50.42 Chronic combined systolic (congestive) and diastolic (congestive) heart failure; N17.9 Acute kidney failure, unspecified; I13.0 Hypertensive heart and chronic kidney disease with heart failure and stage 1 through stage 4 chronic kidney disease, or unspecified chronic kidney disease; K63.5 Polyp of colon; K64.8 Other hemorrhoids; N40.0 Benign prostatic hyperplasia without lower urinary tract symptoms; K70.30 Alcoholic cirrhosis of liver without ascites; F10.20 Alcohol dependence, uncomplicated; D69.6 Thrombocytopenia, unspecified; E83.42 Hypomagnesemia; E83.39 Other disorders of phosphorus metabolism; I08.3 Combined rheumatic disorders of mitral, aortic and tricuspid valves; I48.2 Chronic atrial fibrillation; Z95.2 Presence of prosthetic heart valve; Z88.0 Allergy status to penicillin; Z79.82 Long term (current) use of aspirin; Z79.899 Other long term (current) drug therapy
CPT/HCPCS: 36415; 36430; 80048; 80053; 80069; 81001; 82140; 82272; 83735; 85014; 85018; 85025; 85027; 85610; 86850; 86900; 86901; 86923; 87086; 88305; 96365; 96366; 96367; 96368; 96376; 97162; 97165; 97530; 99285-25; C9113; J0696; J2250; J2370; J3475; J7030; J7050; J7060; J7120; P9016

== ENCOUNTER 2018-04-14 15:08 | Emergency (ER) | payer OTHER ==
[~2018-04-14] VITALS: Ht 172.7 cm; Wt 65.8 kg
[~2018-04-14 15:08] MED LIST changes: +DIALYVITE50000 UNIT PO; +FURO20 PO; +GAVILAX17 GM PO; +IBUP400 PO; +LACT10SY PO; +LEVFLO500 PO; +LIDOCAINE PAIN1 EACH TOP; +PERIDEX15 ML PO; +SPIR50 PO
[2018-04-14] MEDS ORDERED: PANT40 PO (15:57)
[2018-04-14 16:04] LABS: BASOPHILS ABSOLUTE AUTO 0.02 K/mm3 (0.00-0.23); BASOPHILS PERCENT AUTO 0 % (0-2); EOSINOPHILS ABSOLUTE AUTO 0.09 K/mm3 (0.00-0.68); EOSINOPHILS PERCENT AUTO 1 % (0-6); IMMATURE GRAN ABSOLUTE AUTO 0.02 K/mm3 (0.00-0.10); IMMATURE GRAN PERCENT AUTO 0 % (0-1); LYMPHOCYTES ABSOLUTE AUTO 3.13 K/mm3 (0.84-5.20); LYMPHOCYTES PERCENT AUTO 43 % (21-46); MONOCYTES ABSOLUTE AUTO 0.97 K/mm3 (0.16-1.47); MONOCYTES PERCENT AUTO 13 % (4-13); Mean Corpuscular HGB 32.2 pg (26.0-34.0); Mean Corpuscular HGB Conc 34.4 g/dL (31.5-36.5); Mean Platelet Volume 10.2 fL (9.1-12.4); NEUTROPHILS PERCENT AUTO 42 % (41-73); Platelet Count 154 K/mm3 (150-400); RDW Coefficient Variation 15.7 % (11.7-14.2); RDW Standard Deviation 54.1 fL (35.1-46.3); Red Blood Cell Count 3.42 M/mm3 (4.30-5.90); White Blood Cell Count 7.33 K/mm3 (4.00-11.30)
[2018-04-14 16:09] LABS: Mean Corpuscular Volume 94 fL (80-100)
[2018-04-14 16:17] LABS: Alanine Aminotransfer (ALT/SGP 17 U/L (12-78); Albumin, Blood 2.7 g/dL (3.4-5.0); Albumin/Globulin Ratio 0.6 (0.8-1.8); Alk Phos 113 U/L (50-136); Anion Gap 8 mmol/L (6-16); Aspartate Aminotrans (AST/SGOT 56 U/L (12-37); Bilirubin, Total 0.8 mg/dL (0.1-1.0); Blood Urea Nitrogen 11 mg/dL (8-24); Bun/Creatinine Ratio 9.4 (12.0-20.0); CO2, Blood 24 mmol/L (21-32); Calcium, Blood 8.5 mg/dL (8.5-10.1); Chloride, Blood 98 mmol/L (98-108); Creatinine, Blood 1.17 mg/dL (0.60-1.20); Globulin, Blood 4.6 g/dL (2.2-4.0); Glomerular Filtration Rate >60 (60-); Glucose, Blood 96 mg/dL (70-99); Sodium, Blood 130 mmol/L (136-145); Total Protein, Blood 7.3 g/dL (6.4-8.2)
== END 2018-04-14 17:55 | disposition home or self-care (01) ==
LOC: ER 15:08
PROVIDERS: Emergency Medicine
DX: G47.10 Hypersomnia, unspecified (principal); D64.9 Anemia, unspecified; I48.91 Unspecified atrial fibrillation; I13.0 Hypertensive heart and chronic kidney disease with heart failure and stage 1 through stage 4 chronic kidney disease, or unspecified chronic kidney disease; I50.9 Heart failure, unspecified; N18.9 Chronic kidney disease, unspecified; Z87.891 Personal history of nicotine dependence; Z79.899 Other long term (current) drug therapy
CPT/HCPCS: 36415; 70450; 71045; 80053; 82140; 85025; 99285-25

== ENCOUNTER 2019-11-28 09:09 | Day surgery (SDC) | payer OTHER ==
[~2019-11-28] VITALS: Ht 170.2 cm; Wt 81.8 kg
[~2019-11-28 09:09] MED LIST changes: +LO-DOSE ASPIRIN81 MG PO; +PANT40 PO; +ROXICODONE5 MG PO
--- NOTE | 2019-11-28 10:21 | NUR ---
PT SLEEPING POST PROCEDURE. EASILY ROUSES TO VERBAL STIMULI. VSS. WAITING FOR SPOUSE TO RETURN SO DR SLADE CAN DISCUSS PROCEDURE RESULTS WITH HER.
--- NOTE | 2019-11-28 11:15 | NUR ---
PT'S ARRIVED AND IS AT BEDSIDE. UPDATED WITH PROCEDURE RESULTS AND FOLLOW UP INFORMATION.
--- NOTE | 2019-11-28 11:30 | NUR ---
IV DC'D, CATH INTACT. PT AND SPOUSE VERBALIZED UNDERSTANDING OF DC INSTRUCTIONS AND FOLLOW UP INFO. PT OUT TO CAR VIA WHEELCHAIR. ALERT, ORIENTED, AND DENIES COMPLAINTS AT TIME OF DISCHARGE.
== END 2019-11-28 23:06 | disposition home or self-care (01) ==
LOC: MHTC 09:09
DX: I08.3 Combined rheumatic disorders of mitral, aortic and tricuspid valves (principal); I70.0 Atherosclerosis of aorta; I11.9 Hypertensive heart disease without heart failure; I25.10 Atherosclerotic heart disease of native coronary artery without angina pectoris; Z79.01 Long term (current) use of anticoagulants; Z79.899 Other long term (current) drug therapy; Z88.0 Allergy status to penicillin
CPT/HCPCS: 93312; 93325; J2704; J7030

== ENCOUNTER 2020-01-18 11:43 | Emergency (ER) | payer OTHER ==
[~2020-01-18] VITALS: Ht 170.2 cm; Wt 81.7 kg
[2020-01-18 12:29] LABS: BASOPHILS ABSOLUTE AUTO 0.04 K/mm3 (0.00-0.23); BASOPHILS PERCENT AUTO 1 % (0-2); EOSINOPHILS ABSOLUTE AUTO 0.16 K/mm3 (0.00-0.68); EOSINOPHILS PERCENT AUTO 3 % (0-6); Hematocrit 35.6 % (37.0-53.0); Hemoglobin 11.6 g/dL (13.5-17.5); IMMATURE GRAN ABSOLUTE AUTO 0.01 K/mm3 (0.00-0.10); IMMATURE GRAN PERCENT AUTO 0 % (0-1); LYMPHOCYTES ABSOLUTE AUTO 1.77 K/mm3 (0.84-5.20); LYMPHOCYTES PERCENT AUTO 34 % (21-46); MONOCYTES ABSOLUTE AUTO 0.68 K/mm3 (0.16-1.47); MONOCYTES PERCENT AUTO 13 % (4-13); Mean Corpuscular HGB 31.4 pg (26.0-34.0); Mean Corpuscular HGB Conc 32.6 g/dL (31.5-36.5); Mean Corpuscular Volume 96 fL (80-100); Mean Platelet Volume 10.4 fL (9.1-12.4); NEUTROPHILS PERCENT AUTO 48 % (41-73); Platelet Count 168 K/mm3 (150-400); RDW Coefficient Variation 13.4 % (11.7-14.2); White Blood Cell Count 5.16 K/mm3 (4.00-11.30)
[2020-01-18 12:51] LABS: Alanine Aminotransfer (ALT/SGP 61 U/L (12-78); Albumin, Blood 3.1 g/dL (3.4-5.0); Albumin/Globulin Ratio 0.8 (0.8-1.8); Alk Phos 244 U/L (50-136); Anion Gap 5 mmol/L (6-16); Aspartate Aminotrans (AST/SGOT 64 U/L (12-37); Bilirubin, Direct 3.6 mg/dL (0.0-0.3); Bilirubin, Total 4.6 mg/dL (0.1-1.0); Blood Urea Nitrogen 11 mg/dL (8-24); CO2, Blood 29 mmol/L (21-32); Chloride, Blood 104 mmol/L (98-108); Globulin, Blood 3.9 g/dL (2.2-4.0); Glomerular Filtration Rate >60 (60-); Glucose, Blood 147 mg/dL (70-99); Potassium, Blood 3.7 mmol/L (3.5-5.5); Sodium, Blood 138 mmol/L (136-145)
[2020-01-18] MEDS ORDERED: TRAM50 PO (15:04)
[2020-01-18 16:17] LABS: Prothrombin Time Results 10.7 Sec (9.7-11.5)
[2020-01-18 16:35] LABS: Source, Urine Clean Catch
[2020-01-18 16:37] LABS: Appearance, Urine Clear (Clear); Blood, Urine 1+ (Neg); Color, Urine Amber (P-Yellow); Glucose Qualitative, Urine Neg (Neg); Ketones, Urine Neg (Neg); Leukocyte Esterase, Urine 1+ (Neg); Nitrite, Urine Neg (Neg); Protein, Urine Neg (Neg); Specific Gravity, Urine 1.015 (1.003-1.022); Urobilinogen, Urine 2+ (Normal)
[2020-01-18 17:23] LABS: Bilirubin, Urine 2+ (Neg)
[2020-01-18 17:24] LABS: Bacteria Few /hpf; Squamous Epithelial Cells Rare /hpf (Few); White Blood Cells, Urine 0-2 /hpf (0-5)
[2020-01-18] MEDS ORDERED: Zofran4 MG PO (19:08)
== END 2020-01-18 19:29 | disposition home or self-care (01) ==
LOC: ER 11:43
PROVIDERS: Physician Assistant
DX: R17 Unspecified jaundice (principal); R10.11 Right upper quadrant pain; R11.0 Nausea; R61 Generalized hyperhidrosis; I13.0 Hypertensive heart and chronic kidney disease with heart failure and stage 1 through stage 4 chronic kidney disease, or unspecified chronic kidney disease; I50.9 Heart failure, unspecified; N18.9 Chronic kidney disease, unspecified; I48.91 Unspecified atrial fibrillation; Z88.0 Allergy status to penicillin; Z79.01 Long term (current) use of anticoagulants; Z87.891 Personal history of nicotine dependence; Z79.899 Other long term (current) drug therapy
CPT/HCPCS: 36415; 74177; 76705; 80053; 81001; 82248; 83690; 85025; 85610; 85730; 87086; 93005; 93010; 99284-25; Q9967

== ENCOUNTER 2020-04-12 00:06 | Day surgery (SDC) | payer OTHER ==
[~2020-04-12 00:06] MED LIST changes: +Zofran4 MG PO
== END 2020-04-12 11:40 | disposition home or self-care (01) ==
LOC: ATC 00:06
DX: D53.9 Nutritional anemia, unspecified (principal); I10 Essential (primary) hypertension; I48.91 Unspecified atrial fibrillation; I38 Endocarditis, valve unspecified; Z79.01 Long term (current) use of anticoagulants
CPT/HCPCS: 36415; 36430; 86850; 86900; 86901; 86923; J7050; P9016

== ENCOUNTER 2020-05-02 00:06 | Day surgery (SDC) | payer OTHER | END 2020-05-02 11:05 | disposition home or self-care (01) | LOC: ATC 00:06 | DX: D53.9 Nutritional anemia, unspecified (principal); D51.0 Vitamin B12 deficiency anemia due to intrinsic factor deficiency; I10 Essential (primary) hypertension; I48.91 Unspecified atrial fibrillation; I38 Endocarditis, valve unspecified; N40.0 Benign prostatic hyperplasia without lower urinary tract symptoms; Z88.0 Allergy status to penicillin; Z88.8 Allergy status to other drugs, medicaments and biological substances; Z79.01 Long term (current) use of anticoagulants; Z96.652 Presence of left artificial knee joint | CPT/HCPCS: 36415; 36430; 86850; 86900; 86901; 86923; J7050; P9016 ==

== ENCOUNTER 2020-05-29 00:44 | Day surgery (SDC) | payer OTHER | END 2020-05-29 11:30 | disposition home or self-care (01) | LOC: ATC 00:44 | DX: D53.9 Nutritional anemia, unspecified (principal); D51.0 Vitamin B12 deficiency anemia due to intrinsic factor deficiency; I10 Essential (primary) hypertension; I48.91 Unspecified atrial fibrillation; I38 Endocarditis, valve unspecified; Z79.01 Long term (current) use of anticoagulants; Z88.0 Allergy status to penicillin; Z88.8 Allergy status to other drugs, medicaments and biological substances | CPT/HCPCS: 36415; 36430; 86850; 86900; 86901; 86923; J7050; P9016 ==

== ENCOUNTER 2020-07-12 08:42 | Day surgery (SDC) | payer OTHER ==
[2020-07-11 12:53] LABS: Hematocrit 27.9 % (37.0-53.0); Hemoglobin 8.9 g/dL (13.5-17.5); Mean Corpuscular HGB 33.2 pg (26.0-34.0); Mean Corpuscular HGB Conc 31.9 g/dL (31.5-36.5); Mean Corpuscular Volume 104 fL (80-100); Mean Platelet Volume 12.4 fL (9.1-12.4); Platelet Count 154 K/mm3 (150-400); RDW Coefficient Variation 13.6 % (11.7-14.2); RDW Standard Deviation 51.7 fL (35.1-46.3); Red Blood Cell Count 2.68 M/mm3 (4.30-5.90); White Blood Cell Count 4.83 K/mm3 (4.00-11.30)
[2020-07-11 13:35] LABS: Albumin, Blood 3.4 g/dL (3.4-5.0); Albumin/Globulin Ratio 1.1 (0.8-1.8); Bilirubin, Total 1.3 mg/dL (0.1-1.0); Bun/Creatinine Ratio 14.7 (12.0-20.0); Calcium, Blood 8.5 mg/dL (8.5-10.1); Creatinine, Blood 1.29 mg/dL (0.60-1.20); Globulin, Blood 3.1 g/dL (2.2-4.0); Potassium, Blood 4.5 mmol/L (3.5-5.5); Total Protein, Blood 6.5 g/dL (6.4-8.2)
== END 2020-07-12 15:40 | disposition home or self-care (01) ==
LOC: ATC 08:42 → EDSTATUS 13:30 → ATC 15:40
PROVIDERS: Internal Medicine Hematology & Oncology
DX: D59.8 Other acquired hemolytic anemias (principal); D53.9 Nutritional anemia, unspecified; D51.0 Vitamin B12 deficiency anemia due to intrinsic factor deficiency; I48.91 Unspecified atrial fibrillation; I10 Essential (primary) hypertension; I38 Endocarditis, valve unspecified; Z79.01 Long term (current) use of anticoagulants; Z88.0 Allergy status to penicillin; Z88.8 Allergy status to other drugs, medicaments and biological substances
CPT/HCPCS: 36415; 36430; 80053; 85027; 86850; 86900; 86901; 86923; J7050; P9016

== ENCOUNTER 2020-08-09 04:17 | Day surgery (SDC) | payer OTHER ==
[2020-08-08 13:05] LABS: BASOPHILS ABSOLUTE AUTO 0.04 K/mm3 (0.00-0.23); BASOPHILS PERCENT AUTO 1 % (0-2); EOSINOPHILS PERCENT AUTO 3 % (0-6); Hematocrit 28.7 % (37.0-53.0); Hemoglobin 9.3 g/dL (13.5-17.5); IMMATURE GRAN ABSOLUTE AUTO 0.01 K/mm3 (0.00-0.10); IMMATURE GRAN PERCENT AUTO 0 % (0-1); LYMPHOCYTES ABSOLUTE AUTO 2.69 K/mm3 (0.84-5.20); LYMPHOCYTES PERCENT AUTO 44 % (21-46); MONOCYTES ABSOLUTE AUTO 0.54 K/mm3 (0.16-1.47); MONOCYTES PERCENT AUTO 9 % (4-13); Mean Corpuscular HGB 33.9 pg (26.0-34.0); Mean Corpuscular HGB Conc 32.4 g/dL (31.5-36.5); Mean Corpuscular Volume 105 fL (80-100); Mean Platelet Volume 12.5 fL (9.1-12.4); NEUTROPHILS PERCENT AUTO 44 % (41-73); Platelet Count 119 K/mm3 (150-400); RDW Coefficient Variation 15.2 % (11.7-14.2); RDW Standard Deviation 58.2 fL (35.1-46.3); Red Blood Cell Count 2.74 M/mm3 (4.30-5.90); White Blood Cell Count 6.18 K/mm3 (4.00-11.30)
== END 2020-08-09 16:28 | disposition home or self-care (01) ==
LOC: ATC 04:17
PROVIDERS: Legal Medicine
DX: D53.9 Nutritional anemia, unspecified (principal); D50.9 Iron deficiency anemia, unspecified; I10 Essential (primary) hypertension; I48.91 Unspecified atrial fibrillation; Z79.01 Long term (current) use of anticoagulants
CPT/HCPCS: 36415; 36430; 85025; 86850; 86900; 86901; 86923; J7050; P9016

== ENCOUNTER 2020-11-01 01:26 | Day surgery (SDC) | payer OTHER | END 2020-11-01 23:05 | disposition home or self-care (01) | LOC: ATC 01:26 | DX: D51.0 Vitamin B12 deficiency anemia due to intrinsic factor deficiency (principal); I10 Essential (primary) hypertension; I48.91 Unspecified atrial fibrillation; I38 Endocarditis, valve unspecified; Z88.0 Allergy status to penicillin; Z88.8 Allergy status to other drugs, medicaments and biological substances | CPT/HCPCS: 36415; 36430; 86850; 86900; 86901; 86923; J7050; P9016 ==

== ENCOUNTER 2021-01-16 05:53 | Day surgery (SDC) | payer OTHER | END 2021-01-16 13:04 | disposition home or self-care (01) | LOC: ATC 05:53 | DX: D51.0 Vitamin B12 deficiency anemia due to intrinsic factor deficiency (principal); I10 Essential (primary) hypertension; I48.91 Unspecified atrial fibrillation; I38 Endocarditis, valve unspecified; Z88.0 Allergy status to penicillin; Z88.8 Allergy status to other drugs, medicaments and biological substances; Z79.01 Long term (current) use of anticoagulants | CPT/HCPCS: 36415; 36430; 86850; 86900; 86901; 86923; J7050; P9016 ==

== ENCOUNTER 2021-01-24 01:17 | Day surgery (SDC) | payer OTHER ==
--- NOTE | 2021-01-24 17:15 | NUR ---
PT IS WONDERING IF HE PUT THE WRONG BP MEDICATION IN HIS BOX. PT VERY AWARE OF HTN. STATES HE WILL CALL DR HERNANDEZ IN AM IF IT IS HIGH AND AFTER HE CHECKS HIS MEDICATION BOX
== END 2021-01-24 23:35 | disposition home or self-care (01) ==
LOC: ATC 01:17
DX: D51.0 Vitamin B12 deficiency anemia due to intrinsic factor deficiency (principal); I10 Essential (primary) hypertension; I48.91 Unspecified atrial fibrillation; I38 Endocarditis, valve unspecified; Z88.0 Allergy status to penicillin; Z88.8 Allergy status to other drugs, medicaments and biological substances
CPT/HCPCS: 36415; 36430; 86850; 86900; 86901; 86923; J7050; P9016

== ENCOUNTER 2023-02-13 03:05 | Day surgery (SDC) | payer OTHER ==
[2023-02-12 12:56] LABS: BASOPHILS ABSOLUTE AUTO 0.02 K/mm3 (0.00-0.23); BASOPHILS PERCENT AUTO 1 % (0-2); EOSINOPHILS PERCENT AUTO 2 % (0-6); Hematocrit 27.8 % (37.0-53.0); Hemoglobin 8.8 g/dL (13.5-17.5); IMMATURE GRAN ABSOLUTE AUTO 0.01 K/mm3 (0.00-0.10); IMMATURE GRAN PERCENT AUTO 0 % (0-1); LYMPHOCYTES ABSOLUTE AUTO 2.04 K/mm3 (0.84-5.20); LYMPHOCYTES PERCENT AUTO 47 % (21-46); MONOCYTES ABSOLUTE AUTO 0.39 K/mm3 (0.16-1.47); MONOCYTES PERCENT AUTO 9 % (4-13); Mean Corpuscular HGB 34.2 pg (26.0-34.0); Mean Corpuscular HGB Conc 31.7 g/dL (31.5-36.5); Mean Corpuscular Volume 108 fL (80-100); NEUTROPHILS ABSOLUTE AUTO 1.76 K/mm3 (1.96-9.15); NEUTROPHILS PERCENT AUTO 41 % (41-73); Platelet Count 135 K/mm3 (150-400); RDW Coefficient Variation 21.2 % (11.7-14.2); RDW Standard Deviation 77.3 fL (35.1-46.3); Red Blood Cell Count 2.57 M/mm3 (4.30-5.90); White Blood Cell Count 4.32 K/mm3 (4.00-11.30)
[2023-02-13 13:44] VITALS: BP 139/100
[2023-02-13] MEDS ORDERED: AMLO10 PO (13:50)
[2023-02-13] MEDS ORDERED: OXYC5 PO (13:50)
[2023-02-13 14:03] VITALS: BP 143/97
[2023-02-13 15:03] VITALS: BP 152/98
[2023-02-13 15:32] VITALS: BP 147/81
[2023-02-13 15:53] VITALS: BP 157/104
[2023-02-13 17:10] VITALS: BP 142/90
== END 2023-02-13 17:15 | disposition home or self-care (01) ==
LOC: ATC 03:05 → EDSTATUS 07:30 → ATC 07:30
PROVIDERS: Legal Medicine
DX: D51.0 Vitamin B12 deficiency anemia due to intrinsic factor deficiency (principal); I10 Essential (primary) hypertension; I48.91 Unspecified atrial fibrillation; I38 Endocarditis, valve unspecified; Z88.0 Allergy status to penicillin; Z88.8 Allergy status to other drugs, medicaments and biological substances; Z79.899 Other long term (current) drug therapy; Z79.01 Long term (current) use of anticoagulants
CPT/HCPCS: 36415; 36430; 85025; 86850; 86900; 86901; 86923; J7050; P9016

== ENCOUNTER 2023-03-11 02:28 | Day surgery (SDC) | payer OTHER ==
[2023-03-09 12:23] LABS: BASOPHILS ABSOLUTE AUTO 0.05 K/mm3 (0.00-0.23); BASOPHILS PERCENT AUTO 1 % (0-2); EOSINOPHILS PERCENT AUTO 4 % (0-6); Hematocrit 27.1 % (37.0-53.0); Hemoglobin 8.5 g/dL (13.5-17.5); IMMATURE GRAN PERCENT AUTO 0 % (0-1); LYMPHOCYTES ABSOLUTE AUTO 2.12 K/mm3 (0.84-5.20); LYMPHOCYTES PERCENT AUTO 44 % (21-46); MONOCYTES ABSOLUTE AUTO 0.41 K/mm3 (0.16-1.47); MONOCYTES PERCENT AUTO 9 % (4-13); Mean Corpuscular HGB 33.9 pg (26.0-34.0); Mean Corpuscular HGB Conc 31.4 g/dL (31.5-36.5); Mean Corpuscular Volume 108 fL (80-100); NEUTROPHILS ABSOLUTE AUTO 2.04 K/mm3 (1.96-9.15); NEUTROPHILS PERCENT AUTO 42 % (41-73); Platelet Count 155 K/mm3 (150-400); RDW Coefficient Variation 21.8 % (11.7-14.2); RDW Standard Deviation 78.1 fL (35.1-46.3); Red Blood Cell Count 2.51 M/mm3 (4.30-5.90); White Blood Cell Count 4.82 K/mm3 (4.00-11.30)
[2023-03-11] VITALS (7 sets, daily range): BP systolic 133–172; BP diastolic 80–113
[~2023-03-11 02:28] MED LIST changes: +AMLO10 PO
== END 2023-03-11 11:24 | disposition home or self-care (01) ==
LOC: ATC 02:28 → EDSTATUS 07:30 → ATC 11:24
PROVIDERS: Legal Medicine
DX: D51.0 Vitamin B12 deficiency anemia due to intrinsic factor deficiency (principal); D15.0 Benign neoplasm of thymus; I10 Essential (primary) hypertension; I48.91 Unspecified atrial fibrillation; Z88.0 Allergy status to penicillin
CPT/HCPCS: 36415; 36430; 85025; 86850; 86900; 86901; 86923; J7050; P9016

== ENCOUNTER 2024-02-25 04:04 | Observation (INO) | payer OTHER ==
[~2024-02-25] VITALS: Ht 170.2 cm; Wt 75.1 kg
[~2024-02-25 04:04] MED LIST changes: +IBUP200 PO; -IBUP400 PO
[2024-02-25 04:50] LABS: BASOPHILS ABSOLUTE AUTO 0.04 K/mm3 (0.00-0.23); BASOPHILS PERCENT AUTO 1 % (0-2); EOSINOPHILS ABSOLUTE AUTO 0.11 K/mm3 (0.00-0.68); EOSINOPHILS PERCENT AUTO 2 % (0-6); Hematocrit 28.3 % (37.0-53.0); Hemoglobin 9.8 g/dL (13.5-17.5); IMMATURE GRAN ABSOLUTE AUTO 0.01 K/mm3 (0.00-0.10); IMMATURE GRAN PERCENT AUTO 0 % (0-1); LYMPHOCYTES ABSOLUTE AUTO 1.41 K/mm3 (0.84-5.20); LYMPHOCYTES PERCENT AUTO 22 % (21-46); MONOCYTES ABSOLUTE AUTO 0.56 K/mm3 (0.16-1.47); MONOCYTES PERCENT AUTO 9 % (4-13); Mean Corpuscular HGB 33.8 pg (26.0-34.0); Mean Corpuscular HGB Conc 34.6 g/dL (31.5-36.5); Mean Corpuscular Volume 98 fL (80-100); NEUTROPHILS ABSOLUTE AUTO 4.19 K/mm3 (1.96-9.15); NEUTROPHILS PERCENT AUTO 66 % (41-73); Platelet Count 165 K/mm3 (150-400); RDW Coefficient Variation 23.3 % (11.7-14.2); RDW Standard Deviation 78.8 fL (35.1-46.3); White Blood Cell Count 6.32 K/mm3 (4.00-11.30)
[2024-02-25 05:19] LABS: Albumin, Blood 2.3 g/dL (3.4-5.0); Albumin/Globulin Ratio 0.5 (0.8-1.8); Bilirubin, Total 20.6 mg/dL (0.1-1.0); Bun/Creatinine Ratio 18.5 (12.0-20.0); Calcium, Blood 9.1 mg/dL (8.5-10.1); Creatinine, Blood 0.92 mg/dL (0.60-1.20); Globulin, Blood 4.3 g/dL (2.2-4.0); Total Protein, Blood 6.6 g/dL (6.4-8.2)
[2024-02-25] MEDS ORDERED: FLU VACC TS2024-25(6MOS UP)/PF 45 MCG/0.5 ML SYRINGE IM SCH (15:05)
[2024-02-25] MEDS ORDERED: Metoprolol Succinate 50 MG TABCR PO SCH (16:00)
[2024-02-25 16:23] LABS: International Normalized Ratio 1.12; Prothrombin Time Results 11.9 Sec (9.7-11.5)
[2024-02-25 16:42] VITALS: BP 163/109
--- NOTE | 2024-02-25 16:45 | NUR ---
PT ADMITTED FROM THE ED. A/OX4, SBA TO BATHROOM. PT REPORTS EXPERIENCING INCREASING JAUNDICE OVER THE LAST FEW DAYS. PT ALSO REPORTS CHRONIC BACK AND NECK PAIN WHICH HE TAKES OXYCODONE FOR AT HOME. PT IS ON RA, NO TELE.
[2024-02-25] MEDS ORDERED: MAGNESIUM OXID500 MG PO (17:58)
[2024-02-25] MEDS ORDERED: B12-FOLIC ACID1 EACH PO (17:58)
[2024-02-25 19:14] VITALS: BP 183/116
--- NOTE | 2024-02-25 19:33 | NUR ---
BLOOD PRESSURE ELEVATED, 183/116. PT RECEIVED DAILY METOPROLOL AT 1642 FOR BP 163/109, HR 114. ESTATE AGENT JUANCARLOS NOTIFIED- INSTRUCTED TO GIVE NORVASC DOSE SCHEDULED TO START IN AM, NOW.
[2024-02-25] MEDS ORDERED: HydrALAZINE HCl 20 MG / ML 1ML Vial IV PRN (19:35)
[2024-02-25] MEDS ORDERED: AmLODIPine Besylate 5 MG Tab PO ONE (19:40)
[2024-02-25 21:00] VITALS: BP 167/120
[2024-02-25] MEDS ORDERED: Apixaban 5 MG Tab PO SCH (21:00)
[2024-02-25] MEDS ORDERED: OxyCODONE HCL 5 MG TAB PO SCH (21:00)
[2024-02-25 21:57] VITALS: BP 125/79
[2024-02-25] MEDS ORDERED: Magnesium Hydroxide Conc 10 ML UDC PO PRN (22:20)
[2024-02-26 01:26] VITALS: BP 114/80
[2024-02-26 04:53] VITALS: BP 102/71
[2024-02-26 05:05] LABS: BASOPHILS ABSOLUTE AUTO 0.04 K/mm3 (0.00-0.23); BASOPHILS PERCENT AUTO 1 % (0-2); EOSINOPHILS ABSOLUTE AUTO 0.17 K/mm3 (0.00-0.68); EOSINOPHILS PERCENT AUTO 2 % (0-6); Hematocrit 25.8 % (37.0-53.0); IMMATURE GRAN ABSOLUTE AUTO 0.02 K/mm3 (0.00-0.10); IMMATURE GRAN PERCENT AUTO 0 % (0-1); LYMPHOCYTES ABSOLUTE AUTO 1.33 K/mm3 (0.84-5.20); LYMPHOCYTES PERCENT AUTO 18 % (21-46); MONOCYTES ABSOLUTE AUTO 0.82 K/mm3 (0.16-1.47); MONOCYTES PERCENT AUTO 11 % (4-13); Mean Corpuscular HGB 33.8 pg (26.0-34.0); Mean Corpuscular HGB Conc 34.9 g/dL (31.5-36.5); Mean Corpuscular Volume 97 fL (80-100); NEUTROPHILS PERCENT AUTO 68 % (41-73); Platelet Count 156 K/mm3 (150-400); RDW Coefficient Variation 23.1 % (11.7-14.2); Red Blood Cell Count 2.66 M/mm3 (4.30-5.90); White Blood Cell Count 7.48 K/mm3 (4.00-11.30)
[2024-02-26 05:53] LABS: Albumin/Globulin Ratio 0.5 (0.8-1.8); Bilirubin, Total 17.2 mg/dL (0.1-1.0); Bun/Creatinine Ratio 19.4 (12.0-20.0); Calcium, Blood 8.6 mg/dL (8.5-10.1); Creatinine, Blood 0.88 mg/dL (0.60-1.20); Globulin, Blood 3.8 g/dL (2.2-4.0); Potassium, Blood 3.9 mmol/L (3.5-5.5); Total Protein, Blood 5.8 g/dL (6.4-8.2)
--- NOTE | 2024-02-26 05:57 | NUR ---
SHIFT SUMMARY BLOOD PRESSURE ELEVATED AT START OF SHIFT. MEDICATED WITH PO NORVASC, THEN PRN HYDRALAZINE WITH IMPROVEMENT. PT HAS BEEN TACHYCARDIC IN THE 110'S MOST OF THE SHIFT. PT WITH CHRONIC BACK PAIN, MEDICATED PER EMAR. ORDER RECEIVED FOR REQUESTED MILK OF MAGNESIA- PT STATED HE TAKES NIGHTLY DUE TO CONSTIPATION FROM SCHEDULED OXYCODONE. SLEPT INTERMITTENTLY THROUGH THE NIGHT. JAUNDICED SKIN COLOR REMAINS UNCHANGED. BED IN LOWEST POSITION, CALL LIGHT WITHIN REACH, SIDE RAILS UP X2.
[2024-02-26] MEDS ORDERED: Omeprazole 20 MG CapCR PO SCH (06:00)
[2024-02-26 07:33] VITALS: BP 101/73
[2024-02-26] MEDS ORDERED: Tamsulosin HCl 0.4 MG Cap PO SCH (09:00)
[2024-02-26] MEDS ORDERED: AmLODIPine Besylate 5 MG Tab PO SCH (09:00)
[2024-02-26 09:05] VITALS: BP 107/63
--- NOTE | 2024-02-26 13:10 | NUR ---
PT DISCHARGED TO HOME. DISCHARGE INSTRUCTIONS PROVIDED AND EDUCATED ON. DAUGHTER AT BEDSIDE AT TIME OF DISCHARGE. ALL VALUABLES RETURNED AND SENT WITH THE PT.
[2024-02-26 22:45] LABS: MITOCHONDRIAL (M2) AB,IGG 13.9 Units (0.0-24.9)
[2024-02-27 00:47] LABS: EBV AB TO EARLY (D) AG IGG 57.8 U/mL (0.0-10.9); EBV AB TO VIRAL CAPSID AG IGG >750.0 U/mL (0.0-21.9); EBV AB TO VIRAL CAPSID AG IGM 61.1 U/mL (0.0-43.9)
[2024-02-27 11:28] LABS: PETH 16:0/18:1 (POPETH) <10 ng/mL; PETH 16:0/18:2 (PLPETH) <10 ng/mL
[2024-02-28 02:54] LABS: CYTOMEGALOVIRUS BY QUAL PCR Not Detected; CYTOMEGALOVIRUS SOURCE BLOOD EDTA WB
[2024-02-28 09:52] LABS: CERULOPLASMIN 33 mg/dL (15-30)
[2024-02-28 13:22] LABS: HAPTOGLOBIN <10 mg/dL (30-200)
== END 2024-02-26 12:51 | disposition home or self-care (01) ==
LOC: ER 04:04 → MEDS 04:05
PROVIDERS: Emergency Medicine; Student in an Organized Health Care Education/Training Program; ADMIT Internal Medicine
DX: E80.6 Other disorders of bilirubin metabolism (principal); R00.1 Bradycardia, unspecified; D64.9 Anemia, unspecified; F10.21 Alcohol dependence, in remission; I48.91 Unspecified atrial fibrillation; K80.50 Calculus of bile duct without cholangitis or cholecystitis without obstruction; N40.0 Benign prostatic hyperplasia without lower urinary tract symptoms; K76.0 Fatty (change of) liver, not elsewhere classified; I13.0 Hypertensive heart and chronic kidney disease with heart failure and stage 1 through stage 4 chronic kidney disease, or unspecified chronic kidney disease; I50.22 Chronic systolic (congestive) heart failure; N18.9 Chronic kidney disease, unspecified; Z79.01 Long term (current) use of anticoagulants; Z88.0 Allergy status to penicillin; Z88.8 Allergy status to other drugs, medicaments and biological substances
CPT/HCPCS: 36415; 74181; 76705; 80053; 82390; 83010; 83615; 83690; 85025; 85610; 86381; 86663; 86664; 86665; 87496; 93005; 93010; 93246; 96374; 99285-25; A9270; G0378; G0480; J0360

== ENCOUNTER 2024-04-05 12:11 | Day surgery (SDC) | payer OTHER ==
[~2024-04-05] VITALS: Ht 170.2 cm; Wt 71.7 kg
[~2024-04-05 12:11] MED LIST changes: +B12-FOLIC ACID1 EACH PO; +Balanced Salt Epinephrine Irrigation Solution 500 mL IR SCH; +Lidocaine HCl/Pf 1% 5 ML VIAL XX SCH; +MAGNESIUM OXID500 MG PO; +Moxifloxacin HCL 0.5 MG/0.1 ML 0.4MLSYR RIGHTEYE SCH; +PHENYLEPHRINE\\TROPICAMIDE\\TETRACAINE OPHTHALMIC DILATING SOLN RIGHTEYE PRN; +Povidone-Iodine 450 DROP/30 ML Solution ONE; +Povidone-Iodine 450 DROP/30 ML Solution RIGHTEYE SCH; +Tetracaine HCl/Pf 0.5% Opth Soln 4 ml ONE; +diazePAM 2 MG,diazePAM 5 MG PO SCH
--- NOTE | 2024-04-05 13:06 | NUR ---
04/05/24 1306 Joann Calvo CALL LIGHT WITHIN REACH. TETRACAINE IN RIGHT EYE AT 1250 AND PLEDGETT IN AT 1253.
[2024-04-05 13:42] VITALS: BP 141/110
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
== END 2024-04-05 14:02 | disposition home or self-care (01) ==
LOC: ORSCSDS 12:11
PROVIDERS: Student in an Organized Health Care Education/Training Program
PROC: 08RJ3JZ Replacement of Right Lens with Synthetic Substitute, Percutaneous Approach (ICD-10-PCS; principal; 2024-04-05 13:45)
DX: H25.813 Combined forms of age-related cataract, bilateral (principal); H21.81 Floppy iris syndrome; H35.89 Other specified retinal disorders; I10 Essential (primary) hypertension; K74.60 Unspecified cirrhosis of liver; K21.9 Gastro-esophageal reflux disease without esophagitis; H35.3132 Nonexudative age-related macular degeneration, bilateral, intermediate dry stage; Z79.899 Other long term (current) drug therapy
CPT/HCPCS: A9270; V2632

== ENCOUNTER 2024-04-19 12:10 | Day surgery (SDC) | payer OTHER ==
[~2024-04-19] VITALS: Ht 170.2 cm; Wt 71.2 kg
[~2024-04-19 12:10] MED LIST changes: +Diazepam 5 MG Tab PO PRN; +Diazepam 5 MG Tab PO SCH; +Moxifloxacin HCL 0.5 MG/0.1 ML 0.4MLSYR LEFTEYE SCH; -Moxifloxacin HCL 0.5 MG/0.1 ML 0.4MLSYR RIGHTEYE SCH; +Ondansetron 4 MG SoluTab MM PRN; +PHENYLEPHRINE\\TROPICAMIDE\\TETRACAINE OPHTHALMIC DILATING SOLN LEFTEYE PRN; -PHENYLEPHRINE\\TROPICAMIDE\\TETRACAINE OPHTHALMIC DILATING SOLN RIGHTEYE PRN; +Povidone-Iodine 450 DROP/30 ML Solution LEFTEYE SCH; -Povidone-Iodine 450 DROP/30 ML Solution RIGHTEYE SCH; -diazePAM 2 MG,diazePAM 5 MG PO SCH
[2024-04-19] MEDS ORDERED: Diazepam 10 MG Tab ONE (12:29)
--- NOTE | 2024-04-19 13:14 | NUR ---
04/19/24 1314 Joann Calvo CALL LIGHT WITHIN REACH. TETRACAINE IN LEFT EYE AT 1305 AND PLEDGETT IN AT 1307
[2024-04-19] MEDS ORDERED: Ondansetron HCl 2 MG / ML 2ML Vial ONE (13:38)
[2024-04-19 14:08] VITALS: BP 140/92
== END 2024-04-19 14:25 | disposition home or self-care (01) ==
LOC: ORSCSDS 12:10
PROVIDERS: Student in an Organized Health Care Education/Training Program
PROC: 08RK3JZ Replacement of Left Lens with Synthetic Substitute, Percutaneous Approach (ICD-10-PCS; principal; 2024-04-19 13:30)
DX: H25.812 Combined forms of age-related cataract, left eye (principal); H21.81 Floppy iris syndrome; Z96.1 Presence of intraocular lens; H35.3132 Nonexudative age-related macular degeneration, bilateral, intermediate dry stage; I10 Essential (primary) hypertension; I48.91 Unspecified atrial fibrillation; I50.9 Heart failure, unspecified; K21.9 Gastro-esophageal reflux disease without esophagitis; K70.30 Alcoholic cirrhosis of liver without ascites; Z79.01 Long term (current) use of anticoagulants; Z79.899 Other long term (current) drug therapy
CPT/HCPCS: A9270; J2405; V2632

== ENCOUNTER → 2024-09-02 | Outpatient (CLI) | payer OTHER ==
[~2024-09-02] MED LIST changes: -Balanced Salt Epinephrine Irrigation Solution 500 mL IR SCH; -Diazepam 5 MG Tab PO PRN; -Diazepam 5 MG Tab PO SCH; -Lidocaine HCl/Pf 1% 5 ML VIAL XX SCH; -Moxifloxacin HCL 0.5 MG/0.1 ML 0.4MLSYR LEFTEYE SCH; -Ondansetron 4 MG SoluTab MM PRN; -PHENYLEPHRINE\\TROPICAMIDE\\TETRACAINE OPHTHALMIC DILATING SOLN LEFTEYE PRN; -Povidone-Iodine 450 DROP/30 ML Solution LEFTEYE SCH; -Povidone-Iodine 450 DROP/30 ML Solution ONE; -Tetracaine HCl/Pf 0.5% Opth Soln 4 ml ONE
[2024-09-08 08:19] LABS: Stool Occult Bld Immuno 1 Negative (NEGATIVE); Stool Occult Bld Immuno 2 Positive (NEGATIVE); Stool Occult Bld Immuno 3 Positive (NEGATIVE)
== END | disposition home or self-care (01) ==
LOC: LAB 15:00 → LAB SHORT 15:00
PROVIDERS: Registered Nurse Oncology
DX: D59.10 Autoimmune hemolytic anemia, unspecified (principal); K83.01 Primary sclerosing cholangitis
CPT/HCPCS: 82274

== ENCOUNTER 2025-02-21 09:33 | Emergency (ER) | payer OTHER ==
[~2025-02-21] VITALS: Ht 172.7 cm; Wt 79.4 kg
[2025-02-21 09:51] VITALS: BP 177/101
[2025-02-21] MEDS ORDERED: HYDROCODONE-AC1 EA10 PO (10:27)
== END 2025-02-21 10:34 | disposition home or self-care (01) ==
LOC: ER 09:33
DX: S63.502A Unspecified sprain of left wrist, initial encounter (principal); Z88.0 Allergy status to penicillin; Z79.899 Other long term (current) drug therapy; I10 Essential (primary) hypertension; Z79.01 Long term (current) use of anticoagulants; I48.91 Unspecified atrial fibrillation; N18.9 Chronic kidney disease, unspecified; W18.30XA Fall on same level, unspecified, initial encounter; M25.522 Pain in left elbow
CPT/HCPCS: 73090; 73110; 99283-25